=== PATIENT | male | born 1940 | race Caucasian/White ===

== ENCOUNTER 2019-05-08 08:31 | Outpatient (CLI) | payer MEDICARE, OTHER ==
[2019-05-08] MEDS ORDERED: Gadobenate Dimeglumine 529 MG/1 ML (20ML VIAL) ONE (09:00)
--- NOTE | 2019-05-08 11:16 | MRI ---
MRI BRAIN WITH AND WITHOUT CONTRAST: 05/08/2019 12:00 a.m. CLINICAL HISTORY: Diplopia, left CN IV palsy. COMPARISON: None. FINDINGS: Extra axial spaces: Slight prominence due to parenchymal volume loss. Acute infarction: None. Ventricular system: Mild compensatory dilatation. Basal cisterns: Normal. Cerebral parenchyma: Mild chronic microvascular ischemic disease. Midline shift: None. Cerebellum: Normal. Brainstem: Mild pontine gliosis. Paranasal sinuses:Scattered mucosal thickening. Intraaxial Enhancement: None. IMPRESSION: No acute intracranial abnormality. There is no MR evidence of mass or other discernible abnormality to account for left side CN IV palsy. Transcribed Date/Time: 05/08/2019 12:11 PM
== END 2019-05-08 08:32 | disposition home or self-care (01) ==
LOC: SCSMRI 08:31
PROVIDERS: ATTEND Ophthalmology
DX: H49.12 Fourth [trochlear] nerve palsy, left eye (principal)
CPT/HCPCS: 70553; 82565; A9577

== ENCOUNTER 2019-05-22 11:38 | Outpatient (CLI) | payer MEDICARE, OTHER ==
--- NOTE | 2019-05-22 12:26 | ULT ---
BILATERAL CAROTID DUPLEX ULTRASOUND: HISTORY: Loss of vision TECHNIQUE: Grayscale, color-flow and spectral Doppler ultrasound imaging of the extracranial carotid artery syst ems was performed bilaterally. FINDINGS: There is plaque formation on either side. The peak systolic velocity in the right ICA measures 56 cm/s with an end-diastolic velocity of 23 cm/ s and a systolic ratio of 0.75. The peak systolic velocity in the left ICA measures 67 cm/s with an end-diastolic velocity of 22 cm/s and a systolic ratio of 0.83. Flow in both vertebral arteries remains antegrade. IMPRESSION: No evidence of hemodynamically significant stenosis.
== END 2019-05-22 11:39 | disposition home or self-care (01) ==
LOC: SCSULT 11:38
PROVIDERS: ATTEND Ophthalmology Retina Specialist
DX: H49.21 Sixth [abducent] nerve palsy, right eye (principal)
CPT/HCPCS: 93880